=== PATIENT | female | born 1960 ===

== ENCOUNTER 2024-09-26 05:33 | Day surgery (SDC) | payer OTHER ==
[2024-09-19 11:41] VITALS: BP 140/82
[~2024-09-26] VITALS: Ht 177.8 cm; Wt 79.4 kg
[~2024-09-26 05:33] MED LIST: AMLODIPINE BESYL5 MG; COZAAR100 MG PO; LIPITOR20 MG; METFORMIN HCL500 M3 PO; NEURONTIN600 M1 PO
[2024-09-26] MEDS ORDERED: VANCOMYCIN HCL 1,000 MG VIAL ONE (08:08)
[2024-09-26] MEDS ORDERED: BUPIVACAINE HCL/MPF 0.5% 30ML VIAL ONE (08:34)
[2024-09-26] MEDS ORDERED: EPINEPHRINE HCL/PF 1 MG/ML AMPUL ONE (08:34)
[2024-09-26] MEDS ORDERED: PROMETHAZINE HCL 25 MG/ML AMPUL IM PRN (10:15)
[2024-09-26] MEDS ORDERED: MEPERIDINE HCL/PF 25 MG/ML VIAL IM PRN (10:15)
[2024-09-26] MEDS ORDERED: BACTRIM DS TAB1 EACH PO (10:19)
[2024-09-26] MEDS ORDERED: TRAM1TAB98 PO (10:21)
[2024-09-26] MEDS ORDERED: MORPHINE SULFATE 4 MG/ML VIAL IV ONE ×2 (13:30→14:40)
== END 2024-09-26 16:00 | disposition home or self-care (01) ==
LOC: CIR.AMB 05:33
PROVIDERS: ATTEND Orthopaedic Surgery Sports Medicine
DX: M23.221 Derangement of posterior horn of medial meniscus due to old tear or injury, right knee (principal); M17.11 Unilateral primary osteoarthritis, right knee; M65.861 Other synovitis and tenosynovitis, right lower leg; Z88.0 Allergy status to penicillin